=== PATIENT | male | born 1970 ===

== ENCOUNTER 2020-09-16 08:11 | Emergency (ER) | payer OTHER, SELFPAY ==
[2020-09-16 08:56] VITALS: BP 180/101; PULSE 107; RESP 16; TEMP 37.3; O2SAT 97; BMI 32.5
--- NOTE | 2020-09-16 09:09 | XR_ITS ---
EXAMINATION: XR KNEE, LEFT CLINICAL INFORMATION: pain s/p fall COMPARISON: None TECHNIQUE: AP, lateral, and both oblique views of the left knee. FINDINGS: No acute fracture or malalignment. There is lateral compartment joint space narrowing with marginal osteophytes. Mild valgus angulation at the knee. Trace joint effusion. Patellofemoral and medial compartment appear relatively well-preserved. XR/XR knee LT 4V IMPRESSION: Mild to moderate lateral compartment osteoarthritis. Small joint effusion. No acute fracture.
[2020-09-16 10:13] LABS: Influenza A PCR NEGATIVE (Negative); Influenza B PCR NEGATIVE (Negative); Resp Syncy Virus RNA Qual PCR NEGATIVE (Negative)
[2020-09-16 10:18] LABS: SARS COV2 PCR INHOUSE POSITIVE (Negative)
--- NOTE | 2020-09-16 10:50 | ED_ITS ---
HPI - Fall General Chief Complaint: Fall Stated Complaint: lt knee pain Time Seen by Provider: 09/16/20 09:09 Source: patient Mode of arrival: ambulatory Limitations: no limitations History of Present Illness HPI Narrative: States left knee pain status post slip and fall on ice and landing and hitting his knee on the ground. His has mild URI symptoms he does not have any symptoms she is also a patient here checking for COVID symptoms and testing. Patient will also like a test for himself for COVID. He denies any symptoms. Denies any other injury. Onset (ago): day(s) Fall witnessed: yes, by family Prolonged down time: no Context: tripped/slipped Related Data Previous Rx's Medication Instructions Recorded ibuprofen 800 mg PO Q8H PRN #30 tab 09/16/20 Allergies Allergy/AdvReac Type Severity Reaction Status Date / Time No Known Allergies Allergy Verified 09/16/20 08:58 [No Known Allergies*] Review of Systems Review of Systems: Constitutional: No Weight loss, No Fever, No Chills, No Night Sweats, No Fatigue, No Malaise ENT/Mouth: No Hearing loss, No Ear Pain, No Nasal Congestion, No Sinus Pain, No Hoarseness, No sore throat, No Rhinorrhea, No Swallowing Difficulty Eyes: No Eye Pain, No Swelling, No Redness, No Foreign Body, No Discharge, No Vision Changes Cardiovascular: No Chest Pain, No SOB, No Dyspnea on Exertion, No Orthopnea, No Edema, No Palpitations Respiratory: No Cough, No Sputum, No Wheezing, No Smoke Exposure, No Dyspnea Gastrointestinal: No Nausea, No Vomiting, No Diarrhea, No Constipation, No abdominal Pain, No Hematochezia, No Melena Genitourinary: No Dysuria, No Urinary Frequency, No Hematuria, No Urinary Incontinence, No Urgency, No Flank Pain Musculoskeletal: No joint pain, No Myalgias, No Joint Swelling, knee pain in the left knee status post fall as noted in HPI Skin: No Skin Lesions, No rash Neuro: No Weakness, No Numbness, No Paresthesias, No Loss of Consciousness, No Dizziness, No Headache Psych: Negative Heme/Lymph: No Bruising, No Bleeding,No Lymphadenopathy Endocrine: No Polyuria, No Polydipsia, No Temperature Intolerance Yes all other systems are reviewed and are negative [facility] Past Medical History Surgical History (Updated 09/16/20 @ 08:57 by Zaria Salas) Hx of appendectomy Social History Social History Advance Directives: No Advance Directives Information Provided: No Physical Exam Vital Signs: Vital Signs: Last Vital Signs Temp 99.1 F 09/16/20 08:56 Pulse 107 H 09/16/20 08:56 Resp 16 09/16/20 08:56 BP 180/101 H 09/16/20 08:56 Pulse Ox 97 09/16/20 08:56 Body Mass Index 32.5 Reviewed Const: General: cooperative and healthy appearing; No acute distress or intoxicated appearing Nutritional Appearance: average body habitus Orientation/consciousness: patient oriented x3 HENMT: Head: Yes normal to inspection Ears: hearing grossly normal bilaterally Eyes: General: appearance normal, both eyes and all related structures Visual Meza: normal visual meza by confrontation Neck: Neck: Yes normal visual inspection, No positive Brudzinski's sign, No positive Kernig's sign and No tender Thyroid: Thyroid normal Chest: Chest palpation & inspection: normal inspection of the chest Resp: Effort & Inspection: normal respiratory effort Auscultation: clear to auscultation bilaterally Cardio: Jugular venous distension: no JVD Rhythm: regular rhythm Heart sounds: S1 normal heart sound present and S2 normal heart sound present GI: Inspection: Yes normal to inspection Percussion: Yes normal to percussion Auscultation: normal bowel sounds : General: Yes no CVA tenderness Back/Spine/Pelvis: Back: no CVA tenderness Skin: General skin exam: no rashes or lesions noted Neuro: General: patient oriented x3 Extrem: Other: Negative drawer test Able to flex and extend at the knee Negative Homans No rash or swelling. General: Yes normal to inspection - Fall Lab Data Labs: Lab Results 09/16/20 Range/Units 09:22 Coronavirus (PCR) POSITIVE A (Negative) Influenza Type A (PCR) NEGATIVE (Negative) Influenza Type B (PCR) NEGATIVE (Negative) RSV RNA Qual (PCR) NEGATIVE (Negative) Imaging Data Knee x-ray: Radiologist's impression: [address] [id number] ReportSigned Patient: Easton Lucio Baldomero#: [id number]: 1970Acct:[id number]/Sex: 50 / MADM Date: 09/16/20Loc: HO.EDAttending Dr: Ordering Physician: Jeffry Hector NP Date of Service: 09/16/20 Procedure(s): XR knee LT 4V Accession Number(s): [id number] cc: Jeffry Hector NP~ EXAMINATION: XR KNEE, LEFT CLINICAL INFORMATION: pain s/p fall COMPARISON: None TECHNIQUE: AP, lateral, and both oblique views of the left knee. FINDINGS: No acute fracture or malalignment. There is lateral compartment joint space narrowing with marginal osteophytes. Mild valgus angulation at the knee. Trace joint effusion. Patellofemoral and medial compartment appear relatively well-preserved. XR/XR knee LT 4V IMPRESSION: Mild to moderate lateral compartment osteoarthritis. Small joint effusion. No acute fracture. Dictated By:GIBRAN ERNST MDSigned By:<Electronically signed by GIBRAN ERNST MD in OV>09/16/20 1008 DD/ 0909TD/TT: Cataract Lens Generator: WINNIE Discharge Plan Discharge Clinical Impression: Contusion of knee, Arthritis of knee, COVID-19 Patient Disposition: Home, Self-Care Instructions: Osteoarthritis (ED), Knee Pain (ED), COVID-19 (Coronavirus Disease 2019) (ED) Additional Instructions: Your COVID test was positive today 09/16/2020 At this time you will be okay for discharge. Please plan for self quarantine for up to 14 days. Do not expose yourself to others. You may not go to work. If testing does come back negative you may return to activities as long as you are no longer having any symptoms for at least 3 days. Please continue to follow cold instructions and wash your hands frequently. You may take Tylenol as directed on the bottle for pain or fever. Patient seen in the emergency department and should be excused from work next 14 days for self quarantine CDC Guidelines for home isolation: - Stay away from others - WEAR A MASK if you are sick AND STAY HOME - Cover your mouth and nose with a tissue when you cough or sneeze. Dispose of tissues in a lined trash can and wash your hands immediately with soap and water for at least 20 seconds. If soap and water are not available, clean hands with alcohol-based hand manufacturing scheduler that contains at least 60% alcohol. - Clean your hands often with soap and water for at least 20 seconds - Avoid touching your eyes, nose and mouth with unwashed hands - Do not share dishes, drinking glasses, cups, eating utensils, towels, or bedding with other people in your home. After using these items, wash them thoroughly with soap and water or put in the pipe fitter gas pipe. - Clean high-touch surfaces in your isolation area ( sick room and bathroom) every day; let a caregiver clean and disinfect high-touch surfaces in other areas of the home. Clean the area or item with soap and water or another detergent if it is dirty. Then, use a household disinfectant. - Limit contact with pets and animals: If you must care for a pet, wash your hands before and after interacting with them Prescriptions: New ibuprofen 800 mg tablet 800 mg PO Q8H PRN (Reason: pain) Qty: 30 RF: 0 Referrals: ED Physician,Generic [Emergency Provider] - 1 week (Phone was)
== END 2020-09-16 11:09 | disposition home or self-care (01) ==
PROVIDERS: Nurse Practitioner Primary Care; Emergency Provider Emergency Medicine
DX: U07.1 COVID-19 (principal); M17.12 Unilateral primary osteoarthritis, left knee; S80.02XA Contusion of left knee, initial encounter; W00.0XXA Fall on same level due to ice and snow, initial encounter; Y93.9 Activity, unspecified; Y92.480 Sidewalk as the place of occurrence of the external cause; Y99.9 Unspecified external cause status
CPT/HCPCS: 0241U; 36415; 73564; 99282; 99283

== ENCOUNTER 2022-03-13 06:06 | Outpatient (REF) | payer OTHER, SELFPAY ==
[2022-03-13 06:16] LABS: MANUAL DIFF FLAG NO
[2022-03-13 07:41] LABS: Basophils Absolute Auto 0.1 X10*3/uL (0.0-0.2); Basophils Percent Auto 0.8 % (0-2); Eosinophils Absolute Auto 0.2 X10*3/uL (0.0-0.4); Eosinophils Percent Auto 2.7 % (0-4); Hematocrit 41.8 % (42.0-52.0); Hemoglobin 14.1 g/dl (14.0-18.0); Imm Gran Abs Auto 0.03 X10*3/uL (0.00-0.03); Imm Gran Pct Auto 0.5 % (0.0-0.4); Lymphocytes Absolute Auto 1.8 X10*3/uL (1.2-4.9); Lymphocytes Percent Auto 28.7 % (20-40); Mean Corpuscular HGB Conc 33.7 g/dl (31.0-36.0); Mean Corpuscular Hemoglobin 27.6 pg (27.0-33.0); Mean Platelet Volume 12.3 fL (9.4-12.4); Monocytes Absolute Auto 0.5 X10*3/uL (0.1-1.2); Monocytes Percent Auto 8.6 % (2-11); Neutrophils Absolute Auto 3.7 x10*3/uL (2.0-8.3); Neutrophils Percent Auto 58.7 % (45-73); Platelet Count 199 X10*3/uL (160-400); Red Cell Distribution Width 13.1 % (11.0-16.0); White Blood Count 6.3 X10*3/uL (4.8-10.8)
[2022-03-13 08:14] LABS: Alanine Aminotransferase 27 U/L (0-40); Albumin Level 4.5 g/dL (3.5-5.0); Alkaline Phosphatase 72 U/L (39-117); Anion Gap 12 (12-20); Aspartate Amino Transferase 20 U/L (5-37); Bilirubin Total 0.6 mg/dL (0.0-1.0); Blood Urea Nitrogen 16 mg/dL (9-16); Calcium 9.3 mg/dL (8.4-10.2); Carbon Dioxide 24 mmol/L (22-29); Chloride 110 mmol/L (96-108); Cholesterol 234 mg/dL; Estimated Glomerular Filt Rate > 60; Glucose Fasting 90 mg/dL (60-99); HDL Cholesterol 51 mg/dL; LDL Cholesterol Calculated 167 mg/dl; Sodium 142 mmol/L (135-145); Total Protein 7.5 g/dL (6.5-8.0); Triglycerides 83 mg/dL
[2022-03-13 08:39] LABS: Thyroid Stimulating Hormone 0.84 uIU/mL (0.32-4.0); Vitamin D 25-OH Total 22.7 ng/mL (>30)
[2022-03-13 08:44] LABS: Folate 16.2 ng/mL (> or = 4.0); Vitamin B12 923 pg/mL (200-900)
== END 2022-03-13 06:07 | disposition home or self-care (01) ==
LOC: HO.LAB 06:06
PROVIDERS: PCP Internal Medicine; Visit Provider Internal Medicine
DX: Z00.00 Encounter for general adult medical examination without abnormal findings (principal); E66.9 Obesity, unspecified; E78.5 Hyperlipidemia, unspecified; R53.82 Chronic fatigue, unspecified; E55.9 Vitamin D deficiency, unspecified
CPT/HCPCS: 36415; 80053; 80061; 82306; 82607; 82746; 84443; 85025

== ENCOUNTER 2022-06-28 06:08 | Outpatient (REF) | payer OTHER, SELFPAY ==
[2022-06-28 07:57] LABS: Alanine Aminotransferase 32 U/L (0-40); Albumin Level 4.4 g/dL (3.5-5.0); Alkaline Phosphatase 72 U/L (39-117); Anion Gap 14 (12-20); Aspartate Amino Transferase 23 U/L (5-37); Bilirubin Total 0.8 mg/dL (0.0-1.0); Blood Urea Nitrogen 16 mg/dL (9-16); Calcium 9.5 mg/dL (8.4-10.2); Carbon Dioxide 24 mmol/L (22-29); Chloride 106 mmol/L (96-108); Cholesterol 253 mg/dL; Estimated Glomerular Filt Rate > 60; Glucose Fasting 89 mg/dL (60-99); HDL Cholesterol 53 mg/dL; LDL Cholesterol Calculated 173 mg/dl; Potassium 4.2 mmol/L (3.3-5.1); Rheumatoid Factor < 15.0 IU/mL (<15.0); Sodium 140 mmol/L (135-145); Total Protein 7.4 g/dL (6.5-8.0); Triglycerides 138 mg/dL
[2022-06-28 08:35] LABS: Erythrocyte Sedimentation Rate 5 MM/HR (0-15)
[2022-07-01 22:26] LABS: CRP High Sensitivity 1.8 mg/L
[2022-07-02 14:32] LABS: Cyclic Citrullinated Peptide <16 UNITS
[2022-07-03 13:45] LABS: Anti Nuclear Antibody Screen NEGATIVE (NEGATIVE)
== END 2022-06-28 06:09 | disposition home or self-care (01) ==
LOC: HO.LAB 06:08
PROVIDERS: PCP Internal Medicine; Visit Provider Internal Medicine
DX: M25.50 Pain in unspecified joint (principal); E78.5 Hyperlipidemia, unspecified
CPT/HCPCS: 36415; 80053; 80061; 85652; 86038; 86039; 86141; 86200; 86431

== ENCOUNTER → 2022-10-29 07:40 | Outpatient (BNVA) | payer OTHER, SELFPAY | PROVIDERS: PCP Internal Medicine; Visit Provider Student in an Organized Health Care Education/Training Program | DX: Z13.89 Encounter for screening for other disorder (principal) ==

== ENCOUNTER 2022-12-05 15:30 | Outpatient (RCR) | payer OTHER, SELFPAY ==
--- NOTE | 2022-11-18 15:24 | MHC.OT.EP ---
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 HE STATES THAT HE EXPERIENCED THIS SAME PAIN IN THE PAST AND THAT IT IMPROVED WITH A CORTISONE INJECTION. HAS NOT RECENTLY RECEIVED A CORTISONE INJECTION. 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 HE STATES PAIN IS GREATEST IN THE AM. NO RELIEF FOUND WITH USE OF PAIN MEDICATION. A 33% LIMITATION IS REPORTED PER THE QUICKDASH ASSESSMENT. HE WOULD BENEFIT FROM A COURSE OF OT TO ADDRESS THE AREAS MENTIONED BELOW. Frequency and Duration: The patient will be seen 2-3X/WEEK FOR 4 WEEKS Short Term Goals: SEE BELOW Nursing Home Goals: IND HEP IND USE OF CFB REPORT <2/10 PAIN AT REST IND WITH USE OF HEAT/COLD FOR PAIN RELIEF IND JOINT PROTECTION AND ACTIVITY MODIFICATION REPORT <6/10 PAIN DURING IADLs, WORK SIMULATED TASKS Treatment Plan: Therapeutic Exercise Therapeutic Activity Home Exercise Program Splinting Neuro Re-ed Patient Education Desensitization/Sensory Re-ed Edema Control ADL Training Ultrasound NMES Iontophoresis Paraffin Fluidotherapy MHP Cold Packs Joint Mobilization Soft Tissue Mobilization Kinesiotaping Other (see comments) Electronically Signed By: EREN GAMBLE OTR/L Please Sign and return to therapist. Thank you once again for your referral.
--- NOTE | 2022-12-05 16:03 | MHC.OT.DC ---
[address] [phone] F: [phone] Occupational Therapy Discharge Note Patient Name: Easton Lucio Provider: Tiffani España Diagnosis: L LATERAL EPICONDYLITIS Date of Surgery: Date of Evaluation: 11/18/22 Date of Discharge: 12/05/22 Treatments to Date: 5 Cancellations to Date: No Shows to Date: Discharge Status: Achieved Goals Improved Function Independent with HEP Discharge Summary: Pt left elbow pain improved. 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 He plans to return to using his home gym... starting light. Goals met Electronically Signed By: Doreen Delgado OT CHT CLT Reviewed/agree with student documentation: N/A Therapist: Please Sign and return to therapist, thank you for your referral.
== END 2022-12-05 16:04 | disposition home or self-care (01) ==
LOC: HO.OT 15:30
PROVIDERS: PCP Internal Medicine; Visit Provider Student in an Organized Health Care Education/Training Program
DX: M77.12 Lateral epicondylitis, left elbow (principal)
CPT/HCPCS: 97033; 97035; 97110; 97140; 97165

== ENCOUNTER 2023-04-11 13:23 | Outpatient (AMB) | payer OTHER, SELFPAY ==
--- NOTE | 2023-04-11 13:25 | MHC.OFFVIS ---
Intake Vital Signs 04/11/23 13:26 Height 5 ft 9 in Weight 204 lb 12.951 oz BMI 30.2 BP 114/68 Blood Pressure Location Rt brachial Position Sitting Pulse 90 Pulse Source Pulse Oximeter Temp 97.9 F Temp Source Skin Pulse Oximetry (%) 98 Oxygen Delivery Method Room Air Intake Visit Reasons: tennis elbow Intake Note: Here for left tennis elbow. Noticed improvement after reducing work hours. Meeting Planner Required: Yes Meeting Planner Language: Base Remover Name: Jody #[id number] Information Interpreted: clinical only Accompanied by: Self / Same As Patient Allergies No Known Allergies [No Known Allergies*] Allergy (Verified 04/11/23 13:26) Medication List - Last Reconciled 04/11/23 by Tiffani España MD No Known Home Meds HPI HPI Comments History of Present Illness Details 52-year-old male who presented last 5 months ago for left tennis elbow presents today for follow-up. He went occupational therapy for fiber 6 sessions. He states that his left tennis elbow is much better overall. Gets occasional pain in his left elbow certain activities. He is doing well otherwise Initial history: This is a 52-year-old male with no known past medical history of presents for evaluation of left elbow pain. 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 Patient states he has left elbow pain worse with certain movements. States that he had similar pain about 8 years ago and received the cortisone injection which helped him for 5-6 years. The pain started to come back 1-2 years ago. He does not remember going to physical therapy for this condition. He uses [id number] Voltaren gel without relief. He has no other complaints [facility] Medical History COVID-19 Surgical History Hx of appendectomy Family History Mother Arthritis Social History Housing: House Alcohol intake: current Alcohol intake frequency: a few times a month Alcohol type: beer Patient Tobacco Use Status: Current someday Tobacco user Tobacco use type: Cigarette e-Cigarette/Vaping Use: Never Used Second Hand Smoke Exposure: No service: No Current occupational status: employed Current occupational exposures/hazards: No Cognitive needs: No Hearing needs: No Vision needs: Yes Review of Systems Musc Denies arthralgias Physical Exam Vital Signs: Last Vital Signs Temp 97.9 F 04/11/23 13:26 Pulse 90 04/11/23 13:26 BP 114/68 04/11/23 13:26 Pulse Ox 98 04/11/23 13:26 Oxygen Delivery Method Room Air 04/11/23 13:26 BMI result Body Mass Index 30.2 Const General: cooperative and healthy appearing Nutritional Appearance: overweight Orientation/consciousness: patient oriented x3 Limitations: no limitations HEENT Head: Yes normocephalic and Yes atraumatic Resp Effort & Inspection: normal respiratory effort and able to speak in complete sentences Neuro General: patient oriented x3 Extrem Other: Left elbow: No tenderness at the common extensor tendon, negative resisted wrist extension test Normal range of motion of both elbows and shoulders without pain Assessment & Plan Assessment & Plan (1) Left tennis elbow: Code(s): M77.12 - Lateral epicondylitis, left elbow Plan: 52-year-old male with no known past medical history presents for left tennis elbow follow-up. 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 He had similar pain 8 years ago treated with cortisone injection that lasted 5-6 years. Patient did occupational therapy with improvement. Today I do not see any evidence of tennis elbow. Advised patient to continue doing the exercises at home. Follow-up as needed Plan I spent 12 minutes reviewing patient's chart, evaluating patient counseling patient and documenting in the chart Coding Level of Care Code Est Pt Level 3 (82247) Diagnoses Left tennis elbow M77.12
[2023-04-11 13:26] VITALS: BP 114/68; PULSE 90; TEMP 36.6; O2SAT 98; BMI 30.2
== END 2023-04-11 14:16 | disposition home or self-care (01) ==
PROVIDERS: PCP Internal Medicine; Visit Provider Student in an Organized Health Care Education/Training Program
DX: M77.12 Lateral epicondylitis, left elbow (principal)
CPT/HCPCS: 99213

== ENCOUNTER → 2023-04-11 13:23 | Outpatient (BNVA) | payer OTHER, SELFPAY | PROVIDERS: PCP Internal Medicine; Visit Provider Student in an Organized Health Care Education/Training Program ==

== ENCOUNTER 2023-08-19 09:03 | Outpatient (AMB) | payer OTHER, SELFPAY ==
[2023-08-19 11:35] VITALS: BP 122/70; PULSE 80; TEMP 36.7; O2SAT 98
--- NOTE | 2023-08-19 11:35 | MHC.OFFWIV ---
Intake Vital Signs 08/19/23 11:35 Height 5 ft 9 in BP 122/70 Blood Pressure Location Lt brachial Position Sitting Pulse 80 Pulse Source Pulse Oximeter Temp 98.0 F Temp Source Oral Pulse Oximetry (%) 98 Oxygen Delivery Method Room Air Intake Visit Reasons: EP Headaches/Pressure LT eye [phone] Intake Note: pt is here for c/o headaches and pressure around eyes, patient went to eye doctor ad was given eye drops and they told him he has high cholsterol Patient Tobacco Use Status: Current someday Tobacco user Weapons System Instrument Mechanic Required: Yes Weapons System Instrument Mechanic Language: Belarusian Allergies No Known Allergies [No Known Allergies*] Allergy (Verified 08/19/23 12:15) HPI EP Headaches/Pressure LT eye [phone] HPI Details 53-year-old male presents to the office for a sick visit. Patient speaks Bel[place]ian only and a personal insurance advisor was used. He is reporting pain behind the left eye for the past week. Patient was seen by an data operations director on August 04. No eye condition was diagnosed. The pain is intermittent. No loss of vision. No fevers or chills. PFSH Medical History COVID-19 Surgical History Hx of appendectomy Family History Mother Arthritis Social History Housing: House Alcohol intake: current Alcohol intake frequency: a few times a month Alcohol type: beer Patient Tobacco Use Status: Current someday Tobacco user Tobacco use type: Cigarette e-Cigarette/Vaping Use: Never Used Second Hand Smoke Exposure: No service: No Current occupational status: employed Current occupational exposures/hazards: No Cognitive needs: No Hearing needs: No Vision needs: Yes Physical Exam Vital Signs: Last Vital Signs Temp 98.0 F 08/19/23 11:35 Pulse 80 08/19/23 11:35 BP 122/70 08/19/23 11:35 Pulse Ox 98 08/19/23 11:35 Oxygen Delivery Method Room Air 08/19/23 11:35 Const General: cooperative and healthy appearing Nutritional Appearance: well nourished Orientation/consciousness: patient oriented x3 Limitations: no limitations HEENT Head: Yes normal to inspection Eyes General: appearance normal, both eyes and all related structures Neck Neck: Yes normal visual inspection Chest Chest palpation & inspection: normal palpation of entire chest wall Resp Effort & Inspection: normal respiratory effort Neuro General: patient oriented x3 Assessment & Plan Assessment & Plan (1) Sinusitis: Code(s): J32.9 - Chronic sinusitis, unspecified Plan: Antibiotic called in. If symptoms do not improve, I encourage patient to follow-up with his primary care provider. Coding Level of Care Code Est Pt Level 3 (23470) Diagnoses Sinusitis J32.9
== END 2023-08-19 12:25 | disposition home or self-care (01) ==
PROVIDERS: PCP Internal Medicine; Visit Provider Internal Medicine
DX: J32.9 Chronic sinusitis, unspecified (principal)
CPT/HCPCS: 99213

== ENCOUNTER 2023-08-22 09:40 | Outpatient (AMB) | payer OTHER, SELFPAY ==
--- NOTE | 2023-08-22 09:44 | MHC.OFFWIV ---
Intake Vital Signs 08/22/23 09:47 Height 5 ft 9 in Weight 199 lb 2 oz BMI 29.4 BP 120/76 Blood Pressure Location Lt brachial Position Sitting Pulse 73 Pulse Source Pulse Oximeter Temp 98.7 F Temp Source Oral Pulse Oximetry (%) 97 Oxygen Delivery Method Room Air Intake Visit Reasons: EP Told by DR. Fowler to come for 10/Med reaction Intake Note: Pt is here today for reaction to medication, doesn't know which medication. Pt also states today began rectal bleeding. Friday took Meloxicam and Azithromycin and began and allergic reaction. Patient Tobacco Use Status: Current someday Tobacco user Allergies azithromycin Allergy (Intermediate, Verified 08/22/23 10:21) Hives HPI EP Told by DR. Fowler to come for 10/Med reaction HPI Details This is a 53-year-old male patient who presents today to the [place] clinic for a sick visit. He was seen here 2 days ago for sinusitis and prescribed Azithromycin and Meloxicam. He reports that he took the first dose of each and woke the next day with a body rash. This has since resolved and he has not taken the medication since then. He continues to have facial pressure, particularly behind his left eye. He has an appointment with manager contract next month. He also notes that he has noticed some red blood when wiping after having BM. Denies any rectal pain. [facility] Medical History COVID-19 Surgical History Hx of appendectomy Family History Mother Arthritis Social History Housing: House Alcohol intake: current Alcohol intake frequency: a few times a month Alcohol type: beer Patient Tobacco Use Status: Current someday Tobacco user Tobacco use type: Cigarette e-Cigarette/Vaping Use: Never Used Second Hand Smoke Exposure: No service: No Current occupational status: employed Current occupational exposures/hazards: No Cognitive needs: No Hearing needs: No Vision needs: Yes Review of Systems Const All systems reviewed & are unremarkable except as noted in HPI and below Physical Exam Vital Signs: Last Vital Signs Temp 98.7 F 08/22/23 09:47 Pulse 73 08/22/23 09:47 BP 120/76 08/22/23 09:47 Pulse Ox 97 08/22/23 09:47 Oxygen Delivery Method Room Air 08/22/23 09:47 BMI result Body Mass Index 29.4 Const General: cooperative and no acute distress Nutritional Appearance: well nourished Orientation/consciousness: patient oriented x3 Limitations: no limitations HEENT Head: Yes normal to inspection Eyes General: appearance normal, both eyes and all related structures Neck Neck: Yes normal visual inspection Chest Chest palpation & inspection: normal palpation of entire chest wall Resp Effort & Inspection: normal respiratory effort Neuro General: patient oriented x3 Assessment & Plan Assessment & Plan (1) Sinusitis: Code(s): J32.9 - Chronic sinusitis, unspecified Qualifiers: Sinusitis location: maxillary Chronicity: acute Recurrence: non-recurrent Qualified Code(s): J01.00 - Acute maxillary sinusitis, unspecified Plan: Patient has taken NSAIDs previously without reaction, so his reaction/rash was likely from the azithromycin. I have advised he not continue this, and I will start him on a different antibiotic. He can continue the Meloxicam as needed, however I advised he take it separately from the abx to differentiate should he develop another reaction. He should f/u with manager contract as scheduled and can return to the clinic as needed in the interim if he does not improve with treatment. Medications: New doxycycline hyclate 100 mg PO BID 10 tabs 0RF 5 days J01.00 - Acute maxillary sinusitis, unspecified Coding Level of Care Code Est Pt Level 3 (60653) Diagnoses Acute non-recurrent maxillary sinusitis J01.00 Sinusitis location: maxillary Chronicity: acute Recurrence: non-recurrent
[2023-08-22 09:47] VITALS: BP 120/76; PULSE 73; TEMP 37.1; O2SAT 97; BMI 29.4
== END 2023-08-22 10:14 | disposition home or self-care (01) ==
PROVIDERS: PCP Internal Medicine; Visit Provider Internal Medicine
DX: J01.00 Acute maxillary sinusitis, unspecified (principal)
CPT/HCPCS: 99213

== ENCOUNTER 2023-10-15 15:10 | Outpatient (AMB) | payer OTHER, SELFPAY ==
[2023-10-15 15:24] VITALS: BP 130/82; BMI 29.5
--- NOTE | 2023-10-15 15:24 | MHC.PC.OV ---
Vital Signs 10/15/23 15:24 Height 5 ft 9 in Weight 200 lb BMI 29.5 BP 130/82 Blood Pressure Location Lt brachial Position Sitting Intake Visit Reasons: Discuss personal matters Intake Note: patient here for follow up from walk-in clinic, eye concerns Housing Manager Required: No Accompanied by: Self / Same As Patient Allergies azithromycin Allergy (Intermediate, Verified 10/15/23 15:57) Hives Medication List - Last Reconciled 10/15/23 by Leila Villareal MD No Known Home Meds Tobacco use date assessed: 10/15/23 Dental Screening Dental Screen Date: 10/15/23 Did you have a dental visit in the last 12 months?: No Did you have a dental problem in the last 6 months where you did not have access to dental care?: No Was dental information given to patient?: Patient has dentist HPI HPI Comments History of Present Illness Details This is a 53-year-old male with pure hypercholesterolemia that comes today for follow-up on his cholesterol. Lipid panel will be order. Went to ophthalmology and said that his eyes look like he has elevated cholesterol. No chest pain or shortness of breath. [facility] Medical History (Updated 10/15/23 @ 16:01 by Leila Villareal MD) COVID-19 Surgical History Hx of appendectomy Family History Mother Arthritis Social History Housing: House Alcohol intake: current Alcohol intake frequency: a few times a month Alcohol type: beer Patient Tobacco Use Status: Current someday Tobacco user Tobacco use type: Cigarette e-Cigarette/Vaping Use: Never Used Second Hand Smoke Exposure: No service: No Current occupational status: employed Current occupational exposures/hazards: No Cognitive needs: No Hearing needs: No Vision needs: Yes Questionnaire PHQ-9 Over the last 2 weeks, how often have you been bothered by any of the following problems? 1. Little interest or pleasure in doing things: not at all 2. Feeling down, depressed, or hopeless: not at all 3. Trouble falling or staying asleep, or sleeping too much: several days 4. Feeling tired or having little energy: several days 5. Poor appetite or overeating: not at all 6. Feeling bad about yourself - or that you are a failure or have let yourself or your family down: not at all 7. Trouble concentrating on things, such as reading the newspaper or watching television: not at all 8. Moving or speaking so slowly that other people could have noticed. Or the opposite - being so fidgety or restless that you have been moving around a lot more than usual: not at all 9. Thoughts that you would be better off or of hurting yourself in some way: not at all Total score: 2 Depression Screening Interpretation: Negative Depression Screening Done: Yes 85225 - PHQ-9 Billing: Yes Source: Developed by Drs. Alonzo Olson, Taylor Harvey, Randy Mccoy and colleagues, with an educational solo from [employer]. Thrive Questionnaire Date Thrive assessed: 10/15/23 I am a: Patient What is your living situation today?: I have a steady place to live Within the past 12 months, did the food you bought not last and you didn't have the money to get more?: Never true Within the past 12 months, did you worry whether your food would run out before you got money to buy more?: Never true Do you have trouble paying for medicines?: No Do you have trouble getting transportation to medical appointments?: No Do you have trouble paying your heating and electricity bill?: No Do you have trouble taking care of your child, family member or friend?: No Do you have trouble with day-to-day activities such as bathing, preparing meals, shopping, managing finances, etc.?: No Are you currently unemployed and looking for a job?: No Are you interested in more education?: No Please select the resources that you would like help with: None Currently or been in a relationship where the following occur: no concerns reported THRIVE Score: 0 AUDIT C Alcohol Use Questionnaire (AUDIT-C) 1. How often do you have a drink containing alcohol?: Monthly or less 2. How many drinks containing alcohol do you have on a typical day when you are drinking?: 1 or 2 3. How often do you have six or more drinks on one occasion?: Never Total Score: 1 LISSETH-7 AMB Questionnaire LISSETH-7 Date LISSETH - 7 assessed: 10/15/23 Feeling nervous, anxious, or on edge: 1 = Several days Not being able to stop or control worryin = Not at all Worrying too much about different things: 0 = Not at all Trouble relaxin = Not at all Being so restless that it is hard to sit still: 0 = Not at all Becoming easily annoyed or irritable: 0 = Not at all Feeling afraid as if something awful might happen: 0 = Not at all Total LISSETH-7 score (0-4 normal; 5-9 mild; 10-14 moderate; 15-21 severe): 1 Source: Developed by Drs. Alonzo Olson, Taylor Harvey, Randy Mccoy and colleagues, with an educational solo from [employer]. LISSETH-7 Assessment Billing LISSETH-7 Assessment Tool: LISSETH-7 Assessment 51786 Review of Systems Const All systems reviewed & are unremarkable except as noted in HPI and below Eyes Reports no additional complaints, Denies change in vision and Denies other visual disturbances Card Denies chest pain at rest, Denies chest pain with activity, Denies edema, Denies irregular heart rhythm, Denies claudication, Denies dyspnea, Denies dyspnea on exertion, Denies orthopnea, Denies paroxysmal nocturnal dyspnea and Denies slow heart rate Resp Denies cough, Denies dyspnea and Denies dyspnea on exertion GI Denies abdominal pain, Denies change in bowel habits, Denies excessive flatus, Denies nausea and Denies vomiting Denies urinary hesitancy, Denies urinary incontinence and Denies urinary urgency Musc Denies atrophy, Denies deformity and Denies limited range of motion Physical exam (Primary Care) Vital Signs: Last Vital Signs BP 130/82 10/15/23 15:24 BMI result Body Mass Index 29.5 Tobacco/Smoking Status: Tobacco use Status Tobacco use date assessed 10/15/23 10/15/23 15:31 Patient Tobacco Use Status Current someday Tobacco 10/15/23 15:31 Tobacco use type Cigarette 10/15/23 15:31 e-Cigarette/Vaping Use Never Used 10/15/23 15:31 PHQ-9: PHQ-9 Score PHQ-9: Total score 2 10/15/23 16:00 Depression Screening Interpretation: Negative Thrive Assessment: Date of Thrive Assessment Date Thrive assessed 10/15/23 10/15/23 15:31 Currently or been in a relationship where the following occur: no concerns reported Eyes General: appearance normal, both eyes and all related structures Eyelids: Yes eyelids normal Conjunctivae: conjunctivae normal Neck Neck: Yes normal visual inspection and Yes supple Resp Effort & Inspection: normal respiratory effort Auscultation: clear to auscultation bilaterally Cardio Jugular venous distension: no JVD Rate: regular rate Rhythm: regular rhythm Heart sounds: S1 normal heart sound present and S2 normal heart sound present Extrem General: Yes full ROM Assessment and Plan Assessment & Plan (1) Pure hypercholesterolemia: Code(s): E78.00 - Pure hypercholesterolemia, unspecified Plan: Lipid panel ordered. Orders: Orders Lipid Panel Today E78.5 - Hyperlipidemia, unspecified Comprehensive [place]. Panel Fast Today E66.9 - Obesity, unspecified Medications: New melatonin 10 mg PO BEDTIME PRN 30 tabs 0RF sleep 30 days Coding Level of Care Code Est Pt Level 3 (94967) Diagnoses Pure hypercholesterolemia E78.00 Additional Codes LISSETH-7 Assessment Billing - LISSETH-7 Assessment Tool: LISSETH-7 Assessment 27770 ([id number]) Time Spent (min) 19
== END 2023-10-15 16:07 | disposition home or self-care (01) ==
PROVIDERS: PCP Internal Medicine; Visit Provider Internal Medicine
DX: E78.00 Pure hypercholesterolemia, unspecified (principal)
CPT/HCPCS: 99213

== ENCOUNTER 2023-12-05 06:05 | Outpatient (REF) | payer OTHER, SELFPAY ==
[2023-12-05 08:27] LABS: Alanine Aminotransferase 37 U/L (0-40); Albumin Level 4.1 g/dL (3.5-5.0); Alkaline Phosphatase 69 U/L (39-117); Anion Gap 11 (12-20); Aspartate Amino Transferase 25 U/L (5-37); Bilirubin Total 0.5 mg/dL (0.0-1.0); Blood Urea Nitrogen 13 mg/dL (9-16); Calcium 9.3 mg/dL (8.4-10.2); Carbon Dioxide 24 mmol/L (22-29); Chloride 110 mmol/L (96-108); Cholesterol 264 mg/dL (<200); Estimated Glomerular Filt Rate > 60; Glucose Fasting 95 mg/dL (60-99); HDL Cholesterol 58 mg/dL (>40); LDL Cholesterol Calculated 186 mg/dL (<100); Sodium 141 mmol/L (135-145); Total Protein 7.3 g/dL (6.5-8.0); Triglycerides 103 mg/dL (<150)
== END 2023-12-05 06:06 | disposition home or self-care (01) ==
LOC: HO.LAB 06:05
PROVIDERS: PCP Internal Medicine; Visit Provider Internal Medicine
DX: E78.5 Hyperlipidemia, unspecified (principal); E66.9 Obesity, unspecified
CPT/HCPCS: 36415; 80053; 80061

== ENCOUNTER 2024-02-05 11:43 | Outpatient (AMB) | payer OTHER, SELFPAY ==
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
[2024-02-05 12:06] VITALS: BP 110/82; BMI 28.8
== END 2024-02-05 12:43 | disposition home or self-care (01) ==
PROVIDERS: PCP Internal Medicine; Visit Provider Internal Medicine
DX: S06.0X1A Concussion with loss of consciousness of 30 minutes or less, initial encounter (principal)
CPT/HCPCS: 99213; G2211

== ENCOUNTER 2024-03-03 08:56 | Outpatient (AMB) | payer OTHER, SELFPAY ==
[2024-03-03 08:57] VITALS: BP 112/82; BMI 28.6
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
== END 2024-03-03 09:34 | disposition home or self-care (01) ==
PROVIDERS: PCP Internal Medicine; Visit Provider Internal Medicine
DX: M89.8X1 Other specified disorders of bone, shoulder (principal); R51.9 Headache, unspecified
CPT/HCPCS: 99213

== ENCOUNTER 2024-03-03 09:53 | Outpatient (REF) | payer OTHER, SELFPAY ==
--- NOTE | ~2024-03-03 | XR_ITS ---
EXAMINATION: XR CLAVICLE, LEFT CLINICAL INFORMATION: M89.8X1 - Other specified disorders of bone, shoulder COMPARISON: None available. TECHNIQUE: 2 of the left clavicle. FINDINGS: The clavicle is intact. There is mild arthrosis of the left acromioclavicular joint. Surrounding bone and soft tissues unremarkable. XR/XR clavicle LT IMPRESSION: Mild arthrosis of the left acromioclavicular joint.
== END 2024-03-03 09:54 | disposition home or self-care (01) ==
LOC: HO.XRAY 09:53
PROVIDERS: PCP Internal Medicine; Visit Provider Internal Medicine
DX: M89.8X1 Other specified disorders of bone, shoulder (principal)
CPT/HCPCS: 73000

== ENCOUNTER 2024-04-26 09:38 | Outpatient (REF) | payer OTHER, SELFPAY ==
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
== END 2024-04-26 09:39 | disposition home or self-care (01) ==
LOC: HO.MRI 09:38
PROVIDERS: PCP Internal Medicine; Visit Provider Internal Medicine
DX: R51.9 Headache, unspecified (principal); R41.0 Disorientation, unspecified; S06.0XAD Concussion with loss of consciousness status unknown, subsequent encounter
CPT/HCPCS: 70551

== ENCOUNTER 2024-05-26 08:38 | Outpatient (AMB) | payer OTHER, SELFPAY ==
[2024-05-26 08:43] VITALS: BP 126/77; PULSE 85; BMI 29.8
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
== END 2024-05-26 09:09 | disposition home or self-care (01) ==
PROVIDERS: PCP Internal Medicine; Visit Provider Surgery
DX: Z12.11 Encounter for screening for malignant neoplasm of colon (principal)
CPT/HCPCS: 99203

== ENCOUNTER → 2024-05-26 08:38 | Outpatient (BNVA) | payer OTHER, SELFPAY | PROVIDERS: PCP Internal Medicine; Visit Provider Surgery ==

== ENCOUNTER 2024-06-03 08:31 | Outpatient (AMB) | payer OTHER, SELFPAY ==
[2024-06-03 08:33] VITALS: BP 132/78; BMI 29.4
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
== END 2024-06-03 08:59 | disposition home or self-care (01) ==
PROVIDERS: PCP Internal Medicine; Visit Provider Internal Medicine
DX: S06.0X1A Concussion with loss of consciousness of 30 minutes or less, initial encounter (principal); E78.00 Pure hypercholesterolemia, unspecified

== ENCOUNTER → 2024-06-03 08:31 | Outpatient (BNVA) | payer OTHER, SELFPAY | PROVIDERS: PCP Internal Medicine; Visit Provider Internal Medicine | DX: S06.0X1D Concussion with loss of consciousness of 30 minutes or less, subsequent encounter (principal); V00.148D Other scooter (nonmotorized) accident, subsequent encounter; E78.00 Pure hypercholesterolemia, unspecified | CPT/HCPCS: 90471 ==

== ENCOUNTER 2024-06-22 06:05 | Day surgery (SDC) | payer OTHER, SELFPAY ==
[2024-06-18 08:37] VITALS: BMI 29.4
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
[2024-06-22 07:00] VITALS: BP 133/87; PULSE 71; RESP 18; TEMP 36.9; O2SAT 97; BMI 29.7
[2024-06-22] MEDS: Lactated Ringers 1,000 ML 100 ML IVCONT (07:09)
--- NOTE | 2024-06-22 07:20 | MHC.SHP ---
Pre-Procedural Eval Section A - 24 Hr Update-Section A only Date of Service: 06/22/24 The patient is an INPATIENT: No Changes since office visit: No Cold of Flu in the past 2 weeks, No New Medical Problems, No Changes in Medication and No Patient answered all questions The patient has been examined within 24 hours of the surgical procedure. The History & Physical has been completed within 30 days and I have reviewed it.: Yes Section B - Complete if H&P > 30 days Chief Complaint: screening Allergies: Allergies Allergy/AdvReac Type Severity Reaction Status Date / Time azithromycin Allergy Intermediate Hives Verified 06/03/24 08:42 Plan I have reviewed the history and physical and performed a pertinent physical examination on my patient. No changes have occurred unless specified. Time Spent With Patient Time: Total time managing care of this patient today ____ minutes.
--- NOTE | 2024-06-22 07:55 | W.PM.OPN ---
Operative Note Operative Note Date of Service: 06/22/24 Narrative: Preop diagnosis: Colon cancer screening Postop diagnosis: Normal colonoscopy findings Procedure: Colonoscopy Surgeon: Omar Washington MD The patient is a 54-year-old male here for screening colonoscopy. He understood the technique of the procedure as well as the risks, benefits, and alternatives. He was brought to the operating room. He was placed in left lateral decubitus position under monitored anesthesia care. A surgical time-out was done. A full digital rectal exam was done. There were no palpable anal canal lesions. The tip of the Olympus colonoscope was gently introduced through the anal area of his advanced with insufflation all the way to the cecum. The cecum was intubated. The cecum was identified by visualization of the ileocecal valve as well as the appendiceal orifice. The cecal mucosa was unremarkable. The scope was then gradually withdrawn with careful examination of the entire colonic mucosa being done with scope withdrawal. The patient had good bowel prep so it was unlikely that any lesion may have been missed The rectum was reached. There were no lesions seen. The anal canal was unremarkable. The scope was then withdrawn completely with desufflation The patient tolerated the procedure well. There were no immediate complications. The patient was then transferred to the recovery room with stable vital signs. He falls at average risk for colon cancer so his next colonoscopy may be in the next 10 years.
[2024-06-22 08:00] VITALS: BP 130/81; PULSE 73; RESP 14; TEMP 36.4; O2SAT 98
[2024-06-22 08:17] VITALS: BP 130/89; PULSE 59; RESP 17; TEMP 36.1; O2SAT 99
== END 2024-06-22 08:40 | disposition home or self-care (01) ==
PROVIDERS: PCP Internal Medicine; Visit Provider Surgery
PROC: 0DJD8ZZ Inspection of Lower Intestinal Tract, Via Natural or Artificial Opening Endoscopic (ICD-10-PCS; CPT 45378; principal; 2024-06-22 07:30)
DX: Z12.11 Encounter for screening for malignant neoplasm of colon (principal); E78.00 Pure hypercholesterolemia, unspecified; F17.210 Nicotine dependence, cigarettes, uncomplicated; Z79.899 Other long term (current) drug therapy
CPT/HCPCS: 45378; J2003; J2704

== ENCOUNTER → 2024-06-22 06:05 | Outpatient (BNV) | payer OTHER, SELFPAY | PROVIDERS: PCP Internal Medicine; Visit Provider Surgery | DX: Z12.11 Encounter for screening for malignant neoplasm of colon (principal) | CPT/HCPCS: 45378 ==

== ENCOUNTER → 2024-07-01 09:41 | Outpatient (BNVA) | payer OTHER, SELFPAY | PROVIDERS: PCP Internal Medicine; Visit Provider Surgery ==

== ENCOUNTER 2024-12-07 06:02 | Outpatient (REF) | payer OTHER, SELFPAY ==
--- OUTSIDE RECORDS SUMMARY | 2024-12-07 06:04 | XMS_ITS | Clinical Summary ---
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 Name Role Phone Unavailable Primary Care Provider Unavailabl e Social History Tobacco Use Types Packs/Day Years Used Date Smoking Tobacco: Never Assessed Sex and Gender Information Value Date Recorded Sex Assigned at Not on file Legal Sex Male 1:30 PM EDT Gender Identity Not on file Sexual Orientation Not on file Plan of Treatment Health Maintenance Due Date Last Done Comments DTaP,Tdap,and Td Vaccines (1 - Tdap) 1990 Hepatitis B Vaccines (1 of 3 - 19+ 3-dose series) 1990 Pneumococcal Vaccine: 50+ Ye ars (1 of 1 - PCV) 2021 Zoster Vaccines (1 of 2) 2021 Cholesterol Screening (Lipid Panel) 03/19/2024 Colorectal Cancer Screening: Colonoscopy 03/19/2024 Depression Screening 03/19/2024 HIV Screening 03/19/2024 Hepatitis C Screening 03/19/2024 Social Influencers of Health Screening 03/19/2024 COVID-19 Vaccine ( - 2023-2 5 season) 2024 Influenza Vaccine (Season Ended) 2025 HIB Vaccines Aged Out No longer eligi ble based on patient's age to complete this topic HPV Vaccines Aged Out No longer eligi ble based on patient's age to complete this topic Hepatitis A Vaccines Aged Out No long er eligible based on patient's age to complete this topic IPV Vaccines Aged Out No longer eligi ble based on patient's age to complete this topic MMR Vaccines Aged Out No longer eligi ble based on patient's age to complete this topic Meningococcal ACWY Vaccine Aged Out N o longer eligible based on patient's age to complete this topic Meningococcal B Vaccine Aged Out No l onger eligible based on patient's age to complete this topic Pneumococcal Vaccine: Pediat rics (0 to 5 Years) and At-Risk Patients (6 to 64 Years) Aged Out No longer eligible b ased on patient's age to complete this topic RSV Immunization Patients Un geraldine 20 months Aged Out No longer eligible b ased on patient's age to complete this topic Varicella Vaccines Aged Out No longer eligible based on patient's age to complete this topic
--- OUTSIDE RECORDS SUMMARY | 2024-12-07 06:04 | XMS_ITS | Clinical Summary ---
Author Organization [facility] Address [address] [place] [address] Care Team Providers Care Bus Greaser Name Role Phone AndrearadhaBrant NP Primary Care Provider [phone] Source Comments PLEASE NOTE, if this patient is a minor, it may be UNLAWFUL to discuss sensitive information that is contained in these records (such as FAMILY PLANNING, MENTAL HEALTH or SUBSTANCE ABUSE) with the minor patient's parent or other person without the patient's specific authorization.[facility] Allergies No known active allergies Medications omeprazole (PRILOSEC) [address] capsuleIndjojoti ons:Mild acid reflux Take 1 capsule by mouth every morning before breakfast. Do not crush or chew. 30 capsule 3 4 Active ketoconazole (NIZORAL) 2 % shampooIndicati ons:Onychomycos is of toenail Apply topically once daily as needed for itching. 120 mL 3 5 Active clotrimazole (LOTRIMIN) 1 % creamIndication s:Onychomycosis of toenail Apply topically 2 (two) times daily. 15 g 3 5 Active diclofenac (VOLTAREN) 1 % gelIndications: Chronic pain of left knee Apply topically 2 (two) times daily. Apply to most painful area. 100 g 5 6 Active Active Problems Problem Noted Date Diagnosed Date Presbyopia 10/04/2014 Intermittent palpitations 07/04/2014 Overview (07/04/2014): Result type: Echocardiogram - Complete Result date: 17 June 2014 13:00 Result status: Modified Result title: Echo Complete Performed by: Nando Christine MD on 17 June 2014 13:00 Verified by: Nando Christine MD on 17 June 2014 13:00 Encounter info: [id number], [facility] [place], One Time OP, 06/17/2014 - 06/17/2014 Contributor system: [employer] (Circle[employer]) * Final Report * Echo Complete This document has an image Echo Complete-Doppler, Colorflow, M-Mode Transthoracic Echocardiography Report (TTE) Patient Demographics Patient Name EASTON LUCIO Date of Study 06/17/2014 Corporate Gender Male Facility Race Unknown Ethnicity or Date of 1970 Height: 69.29 inches Age 44 year(s) Weight: 207.24 pounds Accession Number [id number] BSA: 2.1 m2 Room Number BMI: 30.35 kg/m2 Referring Physician ALEJANDRO Dunn Interpreting Nando Townsend Physician Head Of Marketing Adometry Taylor Pearson RD Indications Palpitations. Clinical History No cardiac risk factors. Study Data Type of Study TTE procedure:Echo Complete-Doppler, Colorflow, M-Mode. Study Date06/17/2014 Start Time: 01:00 PM Study Location: 3300 Adult Echo Study Status: Echo lab Patient Status: Routine Technical Quality: Adequate Blood Pressure:150/80 mmHg EKG: Within normal limits HR: 72 bpm 2D Measurements LV Diastolic Dimension: 4.4 cm LV Systolic Dimension: 3.5 cm LV Septum Diastolic: 1 cm LV PW Diastolic: 1.3 cm AO Root Dimension: 3.3 cm LA Dimension: 3.8 cm LA ESV (BP):42 ml LVOT Stroke Volume: 81 ml LA ESV Index: 20 ml/m2 LVOT: 2.6 cm Doppler Measurements AV Peak Velocity: 104 cm/s MV Peak E-Wave: 73.5 cm/s AV Peak Gradient: 4.33 mmHg MV Peak A-Wave: 60.2 cm/s MV E/A Ratio: 1.22 LVOT VTI15.2 ml TR Velocity:219 cm/s MV Deceleration Time: 254 msec TR Gradient:19.18 mmHg E' Septal Velocity: 8.99 cm/s PV Peak Velocity: 95.4 cm/s E' Lateral Velocity: 15 cm/s PV Peak Gradient: 3.64 mmHg E/Med E':[id number] E/Lat E':4.9 Cardiac Anatomy Left Ventricle/Interventricular Septum The left ventricle is normal in size, wall thickness and systolic function. The ejection fraction is 55-65%. No regional wall motion abnormalities are seen. Left Atrium/Interatrial Septum The left atrium is normal in size. Aortic Valve The aortic valve is trileaflet and normal in structure and function. There is no aortic stenosis or insufficiency. Mitral Valve The mitral valve is normal in structure and function. There is trace mitral regurgitation. Aorta The aortic root is normal in size. Right Ventricle The right ventricle is normal in size and function. Right Atrium The right atrium is normal in size. Tricuspid Valve There is trace tricuspid valve regurgitation. Pumonary Artery An accurate pulmonary artery pressure could not be obtained. Pericardium/Extracardiac There is no significant pericardial effusion. Summary The left ventricle is normal in size, wall thickness and systolic function. The ejection fraction is 55-65%. No regional wall motion abnormalities are seen. The right ventricle is normal in size and function. Signature Mild hyperlipidemia 07/04/2014 Dyspepsia 07/04/2014 Resolved Problems Problem Noted Date Diagnosed Date Resolved Date Echoencephalogram abnormality 07/01/2014 07/04/2014 Overview (07/01/2014): Result type: Echocardiogram - Complete Result date: 17 June 2014 13:00 Result status: Modified Result title: Echo Complete Performed by: Nando Christine MD on 17 June 2014 13:00 Verified by: Nando Christine MD on 17 June 2014 13:00 Encounter info: [id number], [facility], One Time OP, 06/17/2014 - 06/17/2014 Contributor system: [employer] ([employer]) * Final Report * Echo Complete This document has an image Echo Complete-Doppler, Colorflow, M-Mode Transthoracic Echocardiography Report (TTE) Patient Demographics Patient Name EASTON LUCIO Date of Study 06/17/2014 Corporate Gender Male Facility Race Unknown Ethnicity or Date of 1970 Height: 69.29 inches Age 44 year(s) Weight: 207.24 pounds Accession Number [id number] BSA: 2.1 m2 Room Number BMI: 30.35 kg/m2 Referring Physician ALEJANDRO Dunn MD Physician Head Of Marketing Adometry Taylor Pearson [facility] Indications Palpitations. Clinical History No cardiac risk factors. Study Data Type of Study TTE procedure:Echo Complete-Doppler, Colorflow, M-Mode. Study Date06/17/2014 Start Time: 01:00 PM Study Location: 3300 Adult Echo Study Status: Echo lab Patient Status: Routine Technical Quality: Adequate Blood Pressure:150/80 mmHg EKG: Within normal limits HR: 72 bpm 2D Measurements LV Diastolic Dimension: 4.4 cm LV Systolic Dimension: 3.5 cm LV Septum Diastolic: 1 cm LV PW Diastolic: 1.3 cm AO Root Dimension: 3.3 cm LA Dimension: 3.8 cm LA ESV (BP):42 ml LVOT Stroke Volume: 81 ml LA ESV Index: 20 ml/m2 LVOT: 2.6 cm Doppler Measurements AV Peak Velocity: 104 cm/s MV Peak E-Wave: 73.5 cm/s AV Peak Gradient: 4.33 mmHg MV Peak A-Wave: 60.2 cm/s MV E/A Ratio: 1.22 LVOT VTI15.2 ml TR Velocity:219 cm/s MV Deceleration Time: 254 msec TR Gradient:19.18 mmHg E' Septal Velocity: 8.99 cm/s PV Peak Velocity: 95.4 cm/s E' Lateral Velocity: 15 cm/s PV Peak Gradient: 3.64 mmHg E/Med E':[id number] E/Lat E':4.9 Cardiac Anatomy Left Ventricle/Interventricular Septum The left ventricle is normal in size, wall thickness and systolic function. The ejection fraction is 55-65%. No regional wall motion abnormalities are seen. Left Atrium/Interatrial Septum The left atrium is normal in size. Aortic Valve The aortic valve is trileaflet and normal in structure and function. There is no aortic stenosis or insufficiency. Mitral Valve The mitral valve is normal in structure and function. There is trace mitral regurgitation. Aorta The aortic root is normal in size. Right Ventricle The right ventricle is normal in size and function. Right Atrium The right atrium is normal in size. Tricuspid Valve There is trace tricuspid valve regurgitation. Pumonary Artery An accurate pulmonary artery pressure could not be obtained. Pericardium/Extracardiac There is no significant pericardial effusion. Summary The left ventricle is normal in size, wall thickness and systolic function. The ejection fraction is 55-65%. No regional wall motion abnormalities are seen. The right ventricle is normal in size and function. Signature Social History Tobacco Use Types Packs/Day Years Used Date Smoking Tobacco: Former Cigarettes Smokeless Tobacco: Former Tobacco Cessation:Ready to Q uit: Yes; Counseling Given: Yes Alcohol Use Standard Drinks/Week Comments Yes 0 (1 standard drink = 0.6 oz pur e alcohol) saturdays Social Connections Answer Date Recorded Social Connections and Isolation 0 04/11/2019 Financial Resource Strain Answer Date R ecorded Financial Resource Strain 0 2018 Stress Answer Date Recorded Stress 0 04/11/2019 Physical Activity Answer Date Recorded Physical Activity 0 04/11/2019 Food Insecurity Answer Date Recorded Food 0 04/11/2019 Transportation Needs Answer Date Record ed Transportation 0 04/11/2019 Housing Stability Answer Date Recorded Housing 0 04/11/2019 Safety and Environment Answer Date Nick rded Safety 0 04/11/2019 Utilities Answer Date Recorded Utilities 0 04/11/2019 Employment Answer Date Recorded Employment 0 04/11/2019 Sex and Gender Information Value Date Recorded Sex Assigned at Not on file Legal Sex Male 8:11 AM PDT Gender Identity Not on file Sexual Orientation Not on file Last Filed Vital Signs Vital Sign Reading Time Taken Comments Blood Pressure 128/74 07/02/2016 1:41 PM EST Pulse 104 07/02/2016 1:41 PM EST Temperature 36.4 ??C (97.5 ??F) 07/02/2016 1:41 PM ES T Respiratory Rate 18 07/02/2016 1:41 PM EST Oxygen Saturation - - Inhaled Oxygen Concentration - - Weight 96.2 kg (212 lb) 07/02/2016 1:41 PM EST Height 171.5 cm (5' 7.5 ) 07/02/2016 1:41 PM EST Body Mass Index 32.71 07/02/2016 1:41 PM EST Plan of Treatment Not on file Insurance [facility] [employer] Care Teams Bus Greaser Relationship Specialty Start Date End Date Brant Dempsey NP [address] [place] [id number] PCP - General 06/25/18
[2024-12-07 08:32] LABS: Alanine Aminotransferase 27 U/L (0-40); Albumin Level 4.3 g/dL (3.5-5.0); Alkaline Phosphatase 70 U/L (39-117); Anion Gap 12 (12-20); Aspartate Amino Transferase 22 U/L (5-37); Bilirubin Total 0.5 mg/dL (0.0-1.0); Blood Urea Nitrogen 21 mg/dL (9-16); Calcium 9.5 mg/dL (8.4-10.2); Carbon Dioxide 25 mmol/L (22-29); Chloride 108 mmol/L (96-108); Cholesterol 271 mg/dL (<200); Estimated Glomerular Filt Rate > 60; Glucose Fasting 103 mg/dL (60-99); HDL Cholesterol 62 mg/dL (>40); LDL Cholesterol Calculated 189 mg/dL (<100); Potassium 4.1 mmol/L (3.3-5.1); Sodium 141 mmol/L (135-145); Total Protein 7.5 g/dL (6.5-8.0); Triglycerides 103 mg/dL (<150)
== END 2024-12-07 06:03 | disposition home or self-care (01) ==
LOC: HO.LAB 06:02
PROVIDERS: PCP Internal Medicine; Visit Provider Internal Medicine
DX: E78.00 Pure hypercholesterolemia, unspecified (principal); E78.5 Hyperlipidemia, unspecified
CPT/HCPCS: 36415; 80053; 80061

== ENCOUNTER 2024-12-13 07:20 | Outpatient (AMB) | payer OTHER, SELFPAY ==
--- OUTSIDE RECORDS SUMMARY | 2024-12-13 07:24 | XMS_ITS | Clinical Summary ---
Author Organization [facility] ity Address [address] [place] [address] Care Team Providers Care Mail Technician Name Role Phone Unavailable Primary Care Provider [...]
--- OUTSIDE RECORDS SUMMARY | 2024-12-13 07:24 | XMS_ITS | Clinical Summary ---
Author Organization [facility] Address [address] [place] [address] Care Team Providers Care Economic Developer Name Role Phone Andrearadha Brant ALLEN Primary Care Provider [phone] Source Comments PLEASE NOTE, if this patient [...] on 17 June 2014 13:00 Encounter info: [id number], [facility] [place] 06/17/2014 - 06/17/2014 Contributor system: Shippable * Final Report * Echo Complete This document has an image Echo Complete-Doppler, Colorflow, M-Mode Transthoracic Echocardiography Report (TTE) Patient Demographics Patient Name EASTON LUCIO Date of Study 06/17/2014 Corporate Gender Male Facility Race Unknown Ethnicity or Date of 1970 Height: 69.29 inches Age 44 year(s) Weight: 207.24 pounds Accession Number [id number] BSA: 2.1 m2 Room Number BMI: 30.35 kg/m2 Referring Physician ALEJANDRO Dunn Interpreting Nando Townsend Physician Russian Language Professor Taylor Pearson RD Indications Palpitations. Clinical History [...] cm/s PV Peak Gradient: 3.64 mmHg E/Med E':8.553256 E/Lat E':4.9 Cardiac Anatomy Left Ventricle/Interventricular Septum [...] on 17 June 2014 13:00 Encounter info: [id number], [facility] [place], 06/17/2014 - 06/17/2014 Contributor system: Shippable * Final Report * Echo Complete This document has an image Echo Complete-Doppler, Colorflow, M-Mode Transthoracic Echocardiography Report (TTE) Patient Demographics Patient Name EASTON LUCIO Date of Study 06/17/2014 Corporate Gender Male Facility Race Unknown Ethnicity or Date of 1970 Height: 69.29 inches Age 44 year(s) Weight: 207.24 pounds Accession Number [id number] BSA: 2.1 m2 Room Number BMI: 30.35 kg/m2 Referring Physician ALEJANDRO Dunn MD Physician Russian Language Professor Taylor Pearson [facility] Indications Palpitations. Clinical History No cardiac risk [...] cm/s PV Peak Gradient: 3.64 mmHg E/Med E':8.722017 E/Lat E':4.9 Cardiac Anatomy Left Ventricle/Interventricular Septum [...] Plan of Treatment Not on file Insurance [facility] PLAN COM Care Teams Economic Developer Relationship Specialty Start Date End Date Brant Dempsey NP [address] [place] [id number] PCP - General 06/25/18
[2024-12-13 07:28] VITALS: BP 112/68; PULSE 80; O2SAT 98; BMI 28.5
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
== END 2024-12-13 07:56 | disposition home or self-care (01) ==
LOC: HO.HMCH 07:21
PROVIDERS: PCP Internal Medicine; Visit Provider Internal Medicine
DX: Z00.00 Encounter for general adult medical examination without abnormal findings (principal)

== ENCOUNTER → 2024-12-13 07:20 | Outpatient (BNVA) | payer OTHER, SELFPAY | PROVIDERS: PCP Internal Medicine; Visit Provider Internal Medicine | DX: Z00.00 Encounter for general adult medical examination without abnormal findings (principal) | CPT/HCPCS: 96127 ==

== ENCOUNTER 2025-02-24 12:57 | Outpatient (AMB) | payer OTHER, SELFPAY ==
--- OUTSIDE RECORDS SUMMARY | 2025-02-24 13:00 | XMS_ITS | Clinical Summary ---
Author Organization [facility] ity Address [address] [place] [address] Care Team Providers Care Hiv Prevention Specialist Name Role Phone Unavailable Primary Care Provider [...] Influencers of Health Screening 03/19/2024 COVID-19 Vaccine (1 - 2023-2 5 season) 2024 Influenza Vaccine (#1) 2025 HIB Vaccines Aged Out No longer [...]
--- OUTSIDE RECORDS SUMMARY | 2025-02-24 13:01 | XMS_ITS | Clinical Summary ---
Author Organization [facility] Address [address] [place] [address] Care Team Providers Care Cleaning Technician Name Role Phone Andrearadha Brant ALLEN Primary Care Provider [phone] Source Comments PLEASE NOTE, if this patient [...] on 17 June 2014 13:00 Encounter info: [id number], [facility] [place] One Time OP, 06/17/2014 - 06/17/2014 Contributor system: [email or web address] * Final Report * Echo Complete This document has an image Echo Complete-Doppler, Colorflow, M-Mode Transthoracic Echocardiography Report (TTE) Patient Demographics Patient Name EASTON LUCIO Date of Study 06/17/2014 Corporate Gender Male Facility Race Unknown Ethnicity or Date of 1970 Height: 69.29 inches Age 44 year(s) Weight: 207.24 pounds Accession Number [id number] BSA: 2.1 m2 Room Number BMI: 30.35 kg/m2 Referring Physician ALEJANDRO Dunn Interpreting Nando Townsend Physician Automotive General Sales Manager Taylor Pearson RD Indications Palpitations. Clinical History [...] cm/s PV Peak Gradient: 3.64 mmHg E/Med E':8.686724 E/Lat E':4.9 Cardiac Anatomy Left Ventricle/Interventricular Septum [...] on 17 June 2014 13:00 Encounter info: [id number], [facility] [place], One Time OP, 06/17/2014 - 06/17/2014 Contributor system: [email or web address] * Final Report * Echo Complete This document has an image Echo Complete-Doppler, Colorflow, M-Mode Transthoracic Echocardiography Report (TTE) Patient Demographics Patient Name EASTON LUCIO Date of Study 06/17/2014 Corporate Gender Male Facility Race Unknown Ethnicity or Date of 1970 Height: 69.29 inches Age 44 year(s) Weight: 207.24 pounds Accession Number [id number] BSA: 2.1 m2 Room Number BMI: 30.35 kg/m2 Referring Physician ALEJANDRO Dunn MD Physician Automotive General Sales Manager Taylor Pearson [facility] Indications Palpitations. Clinical History No cardiac [...] cm/s PV Peak Gradient: 3.64 mmHg E/Med E':8.015206 E/Lat E':4.9 Cardiac Anatomy Left Ventricle/Interventricular Septum [...] 104 07/02/2016 1:41 PM EST Temperature 36.4 C (97.5 F) 07/02/2016 1:41 PM EST Respiratory Rate 18 07/02/2016 1:41 PM EST Oxygen Saturation - - Inhaled Oxygen Concentration - - Weight 96.2 kg (212 lb) 07/02/2016 1:41 PM EST Height 171.5 cm (5' 7.5 ) 07/02/2016 1:41 PM EST Body Mass Index 32.71 07/02/2016 1:41 PM EST Plan of Treatment Not on file Insurance [facility] PLAN COM Care Teams Cleaning Technician Relationship Specialty Start Date End Date Brant Dempsey NP [address] [place] [phone] PCP - General 06/25/18
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
[2025-02-24 13:14] VITALS: BP 120/80; BMI 27.8
== END 2025-02-24 13:35 | disposition home or self-care (01) ==
LOC: HO.HMCH 12:58
PROVIDERS: PCP Internal Medicine; Visit Provider Internal Medicine
DX: R42 Dizziness and giddiness (principal); E78.00 Pure hypercholesterolemia, unspecified

== ENCOUNTER 2025-06-03 06:03 | Outpatient (REF) | payer OTHER, SELFPAY ==
--- OUTSIDE RECORDS SUMMARY | 2025-06-03 06:06 | XMS_ITS | Clinical Summary ---
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 Name Role Phone Andrearadha Brant ALLEN Primary Care Provider [phone] Source Comments PLEASE NOTE, if this patient [...] on 17 June 2014 13:00 Encounter info: [id number], [facility], One Time OP, 06/17/2014 - 06/17/2014 Contributor system: [employer] * Final Report * Echo Complete This document has an image Echo Complete-Doppler, Colorflow, M-Mode Transthoracic Echocardiography Report (TTE) Patient Demographics Patient Name EASTON LUCIO Date of Study 06/17/2014 Corporate Gender Male Facility Race Unknown Ethnicity or Date of 1970 Height: 69.29 inches Age 44 year(s) Weight: 207.24 pounds Accession Number [id number] BSA: 2.1 m2 Room Number BMI: 30.35 kg/m2 Referring Physician ALEJANDRO Dunn Interpreting Nando Townsend Physician Youth Care Worker Taylor Pearson RD Indications Palpitations. Clinical History [...] cm/s PV Peak Gradient: 3.64 mmHg E/Med E':[id number] E/Lat E':4.9 Cardiac Anatomy Left Ventricle/Interventricular Septum [...] on 17 June 2014 13:00 Encounter info: [id number], [facility] [place], One Time OP, 06/17/2014 - 06/17/2014 Contributor system: [employer] * Final Report * Echo Complete This document has an image Echo Complete-Doppler, Colorflow, M-Mode Transthoracic Echocardiography Report (TTE) Patient Demographics Patient Name EASTON LUCIO Date of Study 06/17/2014 Corporate Gender Male Facility Race Unknown Ethnicity or Date of 1970 Height: 69.29 inches Age 44 year(s) Weight: 207.24 pounds Accession Number [id number] BSA: 2.1 m2 Room Number BMI: 30.35 kg/m2 Referring Physician ALEJANDRO Dunn MD Physician Youth Care Worker Taylor Pearson [facility] Indications Palpitations. Clinical History No [...] cm/s PV Peak Gradient: 3.64 mmHg E/Med E':[id number] E/Lat E':4.9 Cardiac Anatomy Left Ventricle/Interventricular Septum [...] Plan of Treatment Not on file Insurance [facility] [employer] Care Teams Utility Aircrewman Relationship Specialty Start Date End Date Brant Dempsey NP [address] [place] [address] PCP - General 06/25/18
--- OUTSIDE RECORDS SUMMARY | 2025-06-03 06:06 | XMS_ITS | Clinical Summary ---
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 Name Role Phone Unavailable Primary Care Provider Unavailabl e Social History Tobacco Use Types Packs/Day Years Used Date Smoking Tobacco: Never Assessed Sex and Gender Information Value Date Recorded Sex Assigned at Not on file Legal Sex Male 1:30 PM EDT Gender Identity Not on file Sexual Orientation Not on file Plan of Treatment Health Maintenance Due Date Last Done Comments Colorectal Cancer Screening: Colonoscopy 1970 DTaP,Tdap,and Td Vaccines (1 - Tdap) 1990 Hepatitis B Vaccines (1 of 3 - 19+ 3-dose series) 1990 Pneumococcal Vaccine: 50+ Ye ars (1 of 1 - PCV) 2021 Zoster Vaccines (1 of 2) 2021 Cholesterol Screening (Lipid Panel) 03/19/2024 HIV Screening 03/19/2024 Hepatitis C Screening 03/19/2024 Social Influencers of Health Screening 03/19/2024 Depression Screening 08/18/2024 COVID-19 Vaccine ( - 2023-2 5 season) 2025 Influenza Vaccine (#1) 2025 RSV Immunization Adult Patie nts (1 - 1-dose 75+ series) 2046 HIB Vaccines Aged Out No longer eligi [...]
[2025-06-03 07:56] LABS: Alanine Aminotransferase 26 U/L (0-40); Albumin Level 4.7 g/dL (3.5-5.0); Alkaline Phosphatase 71 U/L (39-117); Anion Gap 11 (12-20); Aspartate Amino Transferase 22 U/L (5-37); Blood Urea Nitrogen 26 mg/dL (9-16); Calcium 9.5 mg/dL (8.4-10.2); Carbon Dioxide 27 mmol/L (22-29); Chloride 110 mmol/L (96-108); Cholesterol 287 mg/dL (<200); Estimated Glomerular Filt Rate > 60; HDL Cholesterol 60 mg/dL (>40); Potassium 3.8 mmol/L (3.3-5.1); Sodium 144 mmol/L (135-145); Total Protein 7.6 g/dL (6.5-8.0); Triglycerides 73 mg/dL (<150)
== END 2025-06-03 06:04 | disposition home or self-care (01) ==
LOC: HO.LAB 06:03
PROVIDERS: PCP Internal Medicine; Visit Provider Internal Medicine
DX: Z00.00 Encounter for general adult medical examination without abnormal findings (principal); E78.5 Hyperlipidemia, unspecified
CPT/HCPCS: 36415; 80053; 80061

== ENCOUNTER 2025-06-15 07:21 | Outpatient (AMB) | payer OTHER, SELFPAY ==
--- OUTSIDE RECORDS SUMMARY | 2025-06-15 07:24 | XMS_ITS | Clinical Summary ---
Author Organization [facility] ity Address [address] [place] [address] Care Team Providers Care String Top Sealer Name Role Phone Unavailable Primary Care Provider [...] Screening 03/19/2024 Depression Screening 08/18/2024 COVID-19 Vaccine (1 - 2023-2 5 season) 2025 Influenza Vaccine [...]
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
[2025-06-15 07:33] VITALS: BP 118/72; PULSE 82; O2SAT 98; BMI 28.1
== END 2025-06-15 07:56 | disposition home or self-care (01) ==
LOC: HO.HMCH 07:22
PROVIDERS: PCP Internal Medicine; Visit Provider Internal Medicine
DX: E78.00 Pure hypercholesterolemia, unspecified (principal)